=== PATIENT | male | born 1970 | race Caucasian/White ===

== ENCOUNTER 2022-12-08 01:11 | Day surgery (SDC) | payer BC, SELFPAY ==
[2022-11-26 14:18] VITALS: BMI 33.0
[2022-12-08 12:42] VITALS: BP 208/104; PULSE 66; RESP 18; TEMP 36.2; O2SAT 99
[2022-12-08] MEDS: LACTATED RINGERS 1,000 ML 150 ML IV CONT (12:57)
--- NOTE | 2022-12-08 13:02 | SUR.PREOP ---
1245: DR WHITE NOTIFIED OF PT'S BLOOD PRESSURE 208/104 IN LEFT UPPER ARM AND 201/108 IN RIGHT LOWER ARM, HEART RATE 66, RESP 18, 02 SAT 99% ON ROOM AIR, TEMP 97.2. PT STATES HE IS SLIGHTLY NERVOUS DUE TO PROCEDURE. NO NEW ORDERS AT THIS TIME. DR WHITE TO SEE PT. PT MADE AWARE AND STATES UNDERSTANDING.
--- NOTE | 2022-12-08 13:14 | P.PNAN_ITS ---
Anes - Initial Pre Proc Eval Procedure: Operation Date: 12/08/22 13:45 Proposed Procedures p Screening Colonoscopy - Antonio Calderón MD Date/Time: 12/08/22 13:14 Surgeon: Antonio Calderón MD Pre Op Diagnosis: neoplasm screening Patient Data Age: 52 Gender: M Height: 1.78 m Weight: 103 kg Last Vital Signs Temp 97.2 F L 12/08/22 12:42 Pulse 66 12/08/22 12:42 Resp 18 12/08/22 12:42 BP 208/104 H 12/08/22 12:42 Pulse Ox 99 12/08/22 12:42 O2 Del Method Room Air 12/08/22 12:42 Allergies Allergy/AdvReac Type Severity Reaction Status Date / Time No Known Allergies Allergy Verified 12/08/22 12:41 Home Medications Medication Instructions Recorded Confirmed Type No Home Medications 12/08/22 12/08/22 History Patient hx anesthesia problems: none Family hx anesthesia problems: none Results Review: All pre-operative results and documents have been reviewed as part of the pre- operative evaluation. [facility] Social History Social History (Updated 10/30/22 @ 13:34 by Litzy Cadet) Smoking packs per day: 0.5 Smoking cigarettes per day: 10.0 Years smoked: 15 Smoking pack-years: 7.50 Smoking status: Current some day smoker Tobacco type: cigarettes Additional smoking assessment comments: a few cigarettes socially at times Alcohol intake: current Drinks per week: 12 Substance use: never Substance use type: does not use Lack of Transportation: No Lack of Food: Never True Current Housing: I Have Housing Concerned About Future Housing: No Difficulty Paying Gas/Electric Bills: No Difficulty Paying for Meds: No Currently Unemployed: No Education: High School Diploma/GED Difficulty w/ Childcare or Family Care: No Living arrangements: with family Occupation/Education: occupation Gender identity (if verbalized by the patient): Male Spiritual care concerns: No Anes - Eval Final PreProcedure Day of Procedure 12/08/22 13:14 Patient weight: obese Heart: regular rate and rhythm Lungs: clear to auscultation Airway: Mallampati scale class II Neurological: alert and oriented Last oral intake: >/= 8 hours ASA classification: II Emergent: no Anesthetic plan: proceed Anesthesia type and monitoring: general GIVS and standard monitoring Results Review: All pre-operative results and documents have been reviewed as part of the pre- operative evaluation. Informed Consent: The patient's anesthetic plan and its attendant risks and benefits were discussed with the patient/family/POA. Questions were solicited and answers provided to the satisfaction of the patient/family/POA.
--- NOTE | 2022-12-08 13:37 | PM.HPGS ---
History of Present Illness History of Present Illness Consent: Risks, benefits, and alternatives have been discussed and questions answered. Patient agrees to proceed with procedure. Chief complaint: neoplasm screening Narrative: Vick Acharya is a 52 year old male Presents for screening colonoscopy. Patient's current weight appetite and bowel movements are normal. Patient denies abdominal pain. He has had no bleeding. Family history noncontributory. Patient presents today for neoplasia screening. Review of Systems Review of Systems: Review of systems noncontributory. [facility] Social History Social History (Updated 10/30/22 @ 13:34 by Litzy Cadet) Smoking packs per day: 0.5 Smoking cigarettes per day: 10.0 Years smoked: 15 Smoking pack-years: 7.50 Smoking status: Current some day smoker Tobacco type: cigarettes Additional smoking assessment comments: a few cigarettes socially at times Alcohol intake: current Drinks per week: 12 Substance use: never Substance use type: does not use Lack of Transportation: No Lack of Food: Never True Current Housing: I Have Housing Concerned About Future Housing: No Difficulty Paying Gas/Electric Bills: No Difficulty Paying for Meds: No Currently Unemployed: No Education: High School Diploma/GED Difficulty w/ Childcare or Family Care: No Living arrangements: with family Occupation/Education: occupation Gender identity (if verbalized by the patient): Male Spiritual care concerns: No Meds Home Medications and Allergies Home Medications Medication Instructions Recorded Confirmed Type No Home Medications 12/08/22 12/08/22 History Allergies Allergy/AdvReac Type Severity Reaction Status Date / Time No Known Allergies Allergy Verified 12/08/22 12:41 Vital Signs Vital Signs - 24 hr 12/08/22 12:42 Temperature 97.2 F L Pulse Rate 66 Respiratory Rate 18 Blood Pressure 208/104 H Pulse Oximetry 99 Oxygen Delivery Room Air Exam Narrative: Physical exam reveals patient be alert. Vital signs stable. HEENT exam is unremarkable. Patient is anicteric. Lungs are clear to auscultation and percussion. Heart is without murmur or extra sounds. Abdomen bowel sounds are present soft nontender with no organomegaly. Digital external rectal exam is normal. Assessment and Plan Assessment and plan (1) Encounter for screening colonoscopy: Code(s): Z12.11 - Encounter for screening for malignant neoplasm of colon Status: Acute Assessment and Plan: Patient presents for screening colonoscopy. He appears to be at average risk for colon polyps. Further recommendations may be given after endoscopy.
[2022-12-08 14:01] VITALS: BP 152/89; PULSE 72; RESP 12; O2SAT 100
[2022-12-08 14:11] VITALS: BP 136/90; PULSE 71; RESP 19; O2SAT 100
[2022-12-08 14:21] VITALS: BP 159/105; PULSE 54; RESP 16; O2SAT 100
== END 2022-12-08 14:33 | disposition home or self-care (01) ==
PROVIDERS: PCP Physician Assistant Medical; Visit Provider Internal Medicine Gastroenterology
PROC: 0DJD8ZZ Inspection of Lower Intestinal Tract, Via Natural or Artificial Opening Endoscopic (ICD-10-PCS; CPT 45378; principal; 2022-12-08 13:45)
DX: Z12.11 Encounter for screening for malignant neoplasm of colon (principal); K64.8 Other hemorrhoids; K57.30 Diverticulosis of large intestine without perforation or abscess without bleeding; F17.210 Nicotine dependence, cigarettes, uncomplicated; E66.9 Obesity, unspecified; Z68.32 Body mass index [BMI] 32.0-32.9, adult
CPT/HCPCS: 45378; J0360; J2704; J7120